=== PATIENT | female | born 1935 | race Caucasian/White ===

== ENCOUNTER 2019-07-02 09:24 | Emergency (ER) | payer MEDICARE, BC ==
--- OUTSIDE RECORDS SUMMARY | 2019-07-02 09:37 | XMS REPORT | Continuity of Care Document ---
:1935 External Reference #:[id number] Author Name Hernietta Carmona Problems Description No Information Available Social History Type Date Description Comments Sex Unknown Allergies, Adverse Reactions, Alerts Description No Information Available Medications Description No Information Available Immunizations Description No Information Available Vital Signs Description No Information Available Results Description No Information Available Procedures Description No Information Available Medical Devices Description No Information Available Encounters Description No Information Available Assessments Description No Information Available Plan of Treatment No Information Available Functional Status Description No Information Available Mental Status Description No Information Available Referrals Description No Information Available
--- OUTSIDE RECORDS SUMMARY | 2019-07-02 09:37 | XMS REPORT | Summary of Care ---
:1935 Author Organization [facility] Address [address] [place] [address] Care Team Providers Name Role Phone Peng Lopez DO Primary Care Provider Reason for Visit Auth/Cert Status Reason Specialty Diagnoses / Procedures Referred By Contact Referred To Contact Diagnoses Acute ischemic stroke Acute ischemic stroke Acute ishemic stroke [163.9] Encounter Details Date Type Department Care Team Description 06/17/2019 - Hospital 09F NEUROSCIENCE [place], [place] Cerebrovascular 06/18/2019 Encounter CRITICAL CARE SHEFALI Conde accident (CVA), [address] unspecified mechanism [place], [place] St (Primary Dx) [id number] [place] [address] [phone] Allergies No Known Allergiesdocumented as of this encounter (statuses as of 06/18/2019) Medications Medication Sig Dispensed Refills Start Date End Date Status Apixaban 5 MG Oral Take 1 tablet 30 tablet 0 06/19/2019 Active Tablet (ELIQUIS) by mouth Two Times Daily Atorvastatin Take 1 tablet 30 tablet 0 06/18/2019 06/16/2020 Active Calcium 40 MG Oral by mouth every Tablet (LIPITOR) evening Atorvastatin Take 1 tablet 30 tablet 0 06/18/2019 06/18/2019 Discontinued Calcium 40 MG Oral by mouth every Tablet (LIPITOR) evening documented as of this encounter (statuses as of 06/18/2019) Active Problems Problem Noted Date Impaired mobility and activities of daily living 06/18/2019 Acute ischemic right MCA stroke 06/17/2019 documented as of this encounter (statuses as of 06/18/2019) Social History Tobacco Use Types Packs/Day Years Used Date Never Smoker 0 Smokeless Tobacco: Never Used Alcohol Use Drinks/Week oz/Week Comments Not Currently Sex Assigned at Date Recorded Not on file Job Start Date Occupation Industry Not on file Not on file Not on file Travel History Travel Start Travel End No recent travel history available. documented as of this encounter Last Filed Vital Signs Vital Sign Reading Time Taken Comments Blood Pressure 148/65 06/18/2019 12:00 PM EST Pulse 91 06/18/2019 12:00 PM EST Temperature 37 06/18/2019 12:00 PM EST C (98.6 F) Respiratory Rate 17 06/18/2019 12:00 PM EST Oxygen Saturation 97% 06/18/2019 12:00 PM EST Inhaled Oxygen Concentration - - Weight 61.5 kg (135 lb 9.3 oz) 06/17/2019 2:00 PM EST Height 168.9 cm (5' 6.5") 06/17/2019 2:00 PM EST Body Mass Index 21.56 06/17/2019 2:00 PM EST documented in this encounter Discharge Instructions Discharge Instr - Charles Watkins PA - 06/18/2019 2:49 PM ESTPatient Instructions: 1) No heavy lifting or strenuous activity 2) Regular diet 3) Continue to take all medications as instructed. 4) Return to ED with any new signs or symptoms including extremity weakness, facial droop, bleeding,or altered mental status. Follow Up: 1) Please follow up with PCP w/in 1 week of discharge 2) Please follow up w/ Stroke Clinic w/in 3 months of discharge 3) Please follow up with boiler technician w/in 1 month of discharge. documented in this encounter Progress Notes Sienna Pearce RN - 06/18/2019 3:27 PM ESTRN reviewed discharge information, follow up information, and medication information with patient and family. All questions answered. Peripheral IV's removed. Sites are clean, dry, intact. Patient has no complaints at time of discharge. Patient discharged to home. Brought out to awaiting family vehicle by this RN. Vee Hemphill CCC-PATIENT ACCESS REPRESENTATIVE - 06/18/2019 2:42 PM ESTSpeech Language Pathology Acute Care Missed Visit Note Location: bedside Attempted to visit patient for therapy, but was unable for the following reasons: MD in room with pt and family, pt is being d/c'd home on regular diet. RN reports that she is doing well on this diet. (Therapist may be reached on [employer]) SESSION: Duration: 0 CHARGES: - ORDER - SPEECH THERAPY CONSULT 1 Units Total treatment minutes: 0.00 Minutes Electronically Signed by: Vee Anguiano, YURY/PATIENT ACCESS REPRESENTATIVE, PATIENT ACCESS REPRESENTATIVE 06/18/2019 2:44:29 PM Electronically signed by Vee Siddiqi, [facility]-PATIENT ACCESS REPRESENTATIVE at 06/18/2019 2:44 PM Mindy Ramesh RN - 06/18/2019 2:00 PM ESTRN to bedside. Pt identified. Prior to bubble study, PIV checked for patency. PIV has good blood return and flushes easily. Agitated saline injection completed as per policy. Pt tolerated well without c/o noted. Pt educated on agitated saline injection prior to completion. No additional questionsat this time Ghazala Simpson MBBS - 06/18/2019 1:23 AM EST NIH Stroke Scale: Follow-up Assessment Category Patient Score 1a. Level of consciousness (Alert, drowsy, etc.) 0 - Alert 1b. LOC Questions (Month, age) 0 - Both questions correct 1c. LOC Commands (Open, close eyes; make fist, let go) 0 - Performs both tasks correctly 2. Best Gaze (Eyes open- patient follows finger or face) 0 - Normal 3. Visual (Introduce visual stimulus to patients visual field quadrants) 0 - No visual loss 4. Facial palsy (Show teeth, raise eyebrows and squeeze eyes shut) 1 - Minor paralysis 5a. Motor Arm left 5b. Motor Arm right (Elevate extremity to 90 and score drift/movement) Left: 0- No drift ( extends arm 10sec. w/o drift) Right: 0- No drift (extends arm 10sec. w/o drift) 6a. Motor Leg left 6b. Motor Leg right (Elevate extremity to 30 and score drift/movement) Left: 0- No drift ( extends leg 5 sec w/o drift) Right: 0- No drift (extends leg 5 sec w/o drift) 7. Limb Ataxia (Finger-nose, heel-san) 0 - Absent 8. Sensory (Pin prick to face, arm trunk, and leg- compare side to side) 0 - Normal 9. Best Language (Name items, describes a picture, reads sentence) 0 - No aphasia 10. Dysarthria (Evaluate speech clarity by patient repeating listed words) 0 - Normal articulation 11. Extinction and Inattention (Use information from prior testing to identify neglect or double simultaneous stimuli testing) 0 -No neglect Total Score: 1 Jeanna Burger RN - 06/17/2019 7:30 PM [id number]: Patient picked up from IR to be transported to 9. Continuous cardiac monitoring maintained. Dr. Christina at bedside for collaborative assessment. Left groin site hematoma noted. Head to toe assessment completed. Post-op bedrest and HOB orders followed. 1500: NaCl 0.9% maintenance fluid started at 100 mL/hr 1730: Dr. Cid at bedside to assess patient. Left groin site hematoma assessed. 1800: Bedside swallow evaluation completed. Patient passed. Regular diet ordered by Dr. Cid 1900: Bedside report given to oncoming RN. Collaborative assessment completed. Jeanna Burger RN - 06/17/2019 6:49 PM ESTIf wound was present on admission , this documentation was sent to attending provider for cosignature. Jeanna Leung RN Alicia Levy MD - 06/17/2019 5:44 PM EST NIH Stroke Scale: Category Patient Score 1a. Level of consciousness (Alert, drowsy, etc.) 0 - Alert 1b. LOC Questions (Month, age) 0 - Both questions correct 1c. LOC Commands (Open, close eyes; make fist, let go) 0 - Performs both tasks correctly 2. Best Gaze (Eyes open- patient follows finger or face) 0 - Normal 3. Visual (Introduce visual stimulus to patients visual field quadrants) 0 - No visual loss 4. Facial palsy (Show teeth, raise eyebrows and squeeze eyes shut) 2 - Partial paralysis 5a. Motor Arm left 5b. Motor Arm right (Elevate extremity to 90 and score drift/movement) Left: 0- No drift ( extends arm 10sec. w/o drift) Right: 0- No drift (extends arm 10sec. w/o drift) 6a. Motor Leg left 6b. Motor Leg right (Elevate extremity to 30 and score drift/movement) Left: 3- No effort against gravity Right: 0- No drift (extends leg 5 sec w/o drift) 7. Limb Ataxia (Finger-nose, heel-san) 0 - Absent 8. Sensory (Pin prick to face, arm trunk, and leg- compare side to side) 0 - Normal 9. Best Language (Name items, describes a picture, reads sentence) 0 - No aphasia 10. Dysarthria (Evaluate speech clarity by patient repeating listed words) 0 - Normal articulation 11. Extinction and Inattention (Use information from prior testing to identify neglect or double simultaneous stimuli testing) 0 -No neglect Total Score: 5 Signature: ALICIA AMARO MD Date and Time: June 17, 2019 5:47 PM Shun Singh MD - 06/17/2019 12:12 PM EST NIH Stroke Scale: Initial Assessment Category Patient Score 1a. Level of consciousness (Alert, drowsy, etc.) 0 - Alert 1b. LOC Questions (Month, age) 0 - Both questions correct 1c. LOC Commands (Open, close eyes; make fist, let go) 0 - Performs both tasks correctly 2. Best Gaze (Eyes open- patient follows finger or face) 2 - Forced deviation or total gaze paresis 3. Visual (Introduce visual stimulus to patients visual field quadrants) 2 - Complete hemianopia 4. Facial palsy (Show teeth, raise eyebrows and squeeze eyes shut) 2 - Partial paralysis 5a. Motor Arm left 5b. Motor Arm right (Elevate extremity to 90 and score drift/movement) Left: 3- No effort against gravity Right: 0- No drift (extends arm 10sec. w/o drift) 6a. Motor Leg left 6b. Motor Leg right (Elevate extremity to 30 and score drift/movement) Left: 3- No effort against gravity Right: 0- No drift (extends leg 5 sec w/o drift) 7. Limb Ataxia (Finger-nose, heel-san) 0 - Absent 8. Sensory (Pin prick to face, arm trunk, and leg- compare side to side) 2 - Severe to total sensory loss 9. Best Language (Name items, describes a picture, reads sentence) 0 - No aphasia 10. Dysarthria (Evaluate speech clarity by patient repeating listed words) 1 - Mild to moderate dysarthria 11. Extinction and Inattention (Use information from prior testing to identify neglect or double simultaneous stimuli testing) 2 -Complete neglect Total Score: 17 LKW 11:10 AM BG 80 173/78 A candidate for tPA tPA given at 1225 IR code activated at 1230 In IR suite now Transfer to F after the MERElectronically signed by Shun Acevedo MD at 2018 1:16 PM ESTdocumented in this encounter Plan of Treatment Name Type Priority Associated Diagnoses Date/Time IR Arteriogram Imaging CODE 06/17/2019 1:24 Cerebral PM EST Echo complete with Cardiac Services Routine 06/17/2019 1:03 bubble study PM EST Name Type Priority Associated Diagnoses Order Schedule IR Arteriogram Cerebral Imaging CODE One Time Imaging CODE/PETROLEUM PRODUCTION ENGINEER for 1 Occurrences starting 06/17/2019 until 06/17/2019 CBC and Differential Lab Routine AM Draw for 3 Occurrences starting 06/18/2019 until 06/20/2019, 1 completed Basic Metabolic Panel Lab Routine AM Draw for 3 Occurrences starting 06/18/2019 until 06/20/2019, 1 completed EKG 12 Lead ECG Routine Once for 1 Occurrences starting 06/18/2019 until 06/18/2019 documented as of this encounter Implants Implanted Type Area Systems Support Officer Device Shelf Model / Identifier Expiration Date Serial / Lot Vas Jayashree - Mynx Embedded Case Manager 6-7 Fr. 10/Bx - [id number] Left: NO MANUFACTURE [id number] / Implanted: Qty: 1 on 06/17/2019 by Pamela Christina MD at [facility] INPATIENT Groin / [id number] documented as of this encounter Procedures Procedure Name Priority Date/Time Associated Comments Diagnosis CT HEAD WITHOUT Routine 06/18/2019 12:25 Results for this CONTRAST 53751 PM EST procedure are in the results section. CBC AND DIFFERENTIAL Routine 06/18/2019 5:41 Results for this AM EST procedure are in the results section. TSH Routine 06/18/2019 5:41 Results for this AM EST procedure are in the results section. T4, FREE Routine 06/18/2019 5:41 Results for this AM EST procedure are in the results section. BASIC METABOLIC PANEL Routine 06/18/2019 5:41 Results for this AM EST procedure are in the results section. MR BRAIN WITHOUT STAT 06/18/2019 12:14 Results for this CONTRAST 92596 AM EST procedure are in the results section. PARTIAL THROMBOPLASTIN Routine 06/17/2019 5:14 Results for this TIME (PTT) PM EST procedure are in the results section. URINALYSIS WITH STAT 06/17/2019 5:14 Results for this MICROSCOPIC PM EST procedure are in the results section. ECHOCARDIOGRAM COMPLETE Routine 06/17/2019 1:03 WITH BUBBLE STUDY PM EST EKG ED PHYSICIAN Routine 06/17/2019 12:52 Results for this INTERPRETATION PM EST procedure are in the results section. CT ANGIOGRAPHY NECK CODE 06/17/2019 12:36 Results for this 50272 PM EST procedure are in the results section. CT ANGIOGRAPHY HEAD CODE 06/17/2019 12:36 Results for this 89508 PM EST procedure are in the results section. PROTIME INR CODE 06/17/2019 12:32 Results for this PM EST procedure are in the results section. CBC AND DIFFERENTIAL CODE 06/17/2019 12:32 Results for this PM EST procedure are in the results section. TSH Routine 06/17/2019 12:32 Results for this PM EST procedure are in the results section. BILIRUBIN, DIRECT Routine 06/17/2019 12:32 Results for this PM EST procedure are in the results section. LIPID PANEL Routine 06/17/2019 12:32 Results for this PM EST procedure are in the results section. COMPREHENSIVE METABOLIC Routine 06/17/2019 12:32 Results for this PANEL PM EST procedure are in the results section. BASIC METABOLIC PANEL CODE 06/17/2019 12:32 Results for this PM EST procedure are in the results section. HEMOGLOBIN A1C Routine 06/17/2019 12:31 Results for this PM EST procedure are in the results section. EKG 12-LEAD - CMAXX 06/17/2019 12:28 REPORT PM EST EKG 12-LEAD - CMAXX 06/17/2019 12:28 REPORT PM EST EKG 12-LEAD STAT 06/17/2019 12:28 Results for this PM EST procedure are in the results section. EKG 12-LEAD - CMAXX 06/17/2019 12:28 REPORT PM EST POCT ISTAT TROPONIN Routine 06/17/2019 12:24 Results for this PM EST procedure are in the results section. documented in this encounter Results CT Head without Contrast (06/18/2019 12:25 PM EST) Specimen Impressions Performed At IMPRESSION: [facility] 1. No acute intracranial hemorrhage or acute territorial infarction. 2. Left temporal encephalomalacia and chronic microvascular ischemic changes as above. Narrative Performed At [facility] INDICATION: Status post TPA. TECHNIQUE: Multidetector axial CT images were obtained from the skull base to the vertex without administration of intravenous contrast. Automated dose lowering techniques and/or adjustment according to patient size were utilized for this exam. COMPARISON: CTA head and neck dated 06/17/2019. FINDINGS: No acute intracranial hemorrhage or acute territorial infarction is evident. Encephalomalacia of the anterior left temporal lobe is again noted. A few scattered hypodensities in the periventricular and subcortical white matter are nonspecific, but likely sequela of chronic microvascular ischemic disease. Mild generalized cerebral volume loss with commensurate enlargement of the ventricles, sulci, basal cisterns is noted. The basal cisterns are patent. No extra-axial fluid collections are identified. The calvarium is diffusely demineralized, but otherwise intact. The imaged paranasal sinuses and mastoid air cells are clear. Procedure Note Interface, Received Via yoonew System - 06/18/2019 2:06 PM EST INDICATION: Status post TPA. TECHNIQUE: Multidetector axial CT images were obtained from the skull base to the vertex without administration of intravenous contrast. Automated dose lowering techniques and/or adjustment according to patient size were utilized for this exam. COMPARISON: CTA head and neck dated 06/17/2019. FINDINGS: No acute intracranial hemorrhage or acute territorial infarction is evident. Encephalomalacia of the anterior left temporal lobe is again noted. A few scattered hypodensities in the periventricular and subcortical white matter are nonspecific, but likely sequela of chronic microvascular ischemic disease. Mild generalized cerebral volume loss with commensurate enlargement of the ventricles, sulci, basal cisterns is noted. The basal cisterns are patent. No extra-axial fluid collections are identified. The calvarium is diffusely demineralized, but otherwise intact. The imaged paranasal sinuses and mastoid air cells are clear. IMPRESSION: 1. No acute intracranial hemorrhage or acute territorial infarction. 2. Left temporal encephalomalacia and chronic microvascular ischemic changes as above. Performing Organization Address City/State/Zipcode Phone Number [facility] [address] [place] [address] Basic Metabolic Panel (06/18/2019 5:41 AM EST) Bicarbonate 22 22 - 29 [facility] mmol/L [facility] Chloride 108 (H) 98 - 107 [facility] mmol/L [facility] Creatinine 0.54 0.50 - 0.90 [facility] mg/dL [facility] Glucose 96 70 - 140 [facility] mg/dL [facility] Potassium 3.9 3.4 - 5.1 [facility] mmol/L [facility] Sodium 138 136 - 145 [facility] mmol/L [facility] Blood Urea Nitrogen 15 8 - 23 mg/dL [facility] Pathology Anion Gap 8 8 - 15 mmol/L [facility] Pathology Osmolality, Brett 287 275 - 300 [facility] mosm/kg [facility] BUN/Cre Ratio 28 [facility] Pathology Calcium 8.2 (L) 8.8 - 10.2 [facility] mg/dL [facility] GFR Non eGFR is not >60 [facility] Italian 2009 calculated in mL/min/1.73m2 [facility] CDK-EPI patients <18 or Pathology >80 years of age. GFR eGFR is not >60 [facility] Italian 2008 calculated in mL/min/1.73m2 [facility] CKD-EPI patients <18 or Pathology >80 years of age. Specimen Plasma Performing Organization Address City/[facility]/Zipcode Phone Number [facility] CLINICAL PATHOLOGY [address] [place] [address] [facility] [address] [place] [address] Pathology CBC and Differential (06/18/2019 5:41 AM EST) White Blood Cell 7.2 4 - 10 [facility] 10*3/uL [facility] Red Blood Cell 3.45 (L) 4.1 - 5.3 [facility] 10*6/uL [facility] Hemoglobin 10.0 (L) 11.5 - 15.5 [facility] g/dL [facility] Hematocrit 30.6 (L) 36 - 45 % [facility] Mean Cell Volume 88.9 80 - 96 fL [facility] Pathology Mean Cell Hemoglobin 29.0 27 - 33 pg [facility] Pathology Mean Cell Hgb Conc 32.7 32.0 - 36.0 [facility] g/dL [facility] Red Cell Dist Width 14.3 11.5 - 14.5 % [facility] Pathology Platelet Count 171 150 - 400 [facility] 10*3/uL [facility] Differential Type Automated Diff [facility] Neutrophil 61 % [facility] Lymphocyte 26 % [facility] Monocyte 11 % [facility] Eosinophil 1 % [facility] Basophil 1 % [facility] Pathology Abs Neutrophil 4.35 1.8 - 7.0 [facility] 10*3/uL [facility] Abs Lymphocyte 1.89 1.2 - 4.0 [facility] 10*3/uL [facility] Abs Monocyte 0.78 0 - 0.8 [facility] 10*3/uL [facility] Abs Eosinophil 0.09 0 - 0.5 [facility] 10*3/uL [facility] Abs Basophil 0.04 0 - 0.2 [facility] 10*3/uL [facility] Nucleated Red Blood 0 0 - 0 [facility] Cells /100{WBCs} [facility] Pathology Specimen EDTA Whole Blood Performing Organization Address [facility] Phone Number [facility] CLINICAL PATHOLOGY [address] [place] [address] [facility] [address] [place] [address] Pathology TSH (06/18/2019 5:41 AM EST) TSH 1.870 0.270 - 4.200 u[IU]/mL [facility] Pathology Specimen Plasma Performing Organization Address [facility] Phone Number [facility] CLINICAL PATHOLOGY [address] [place] [address] [facility] [address] [place] [address] Pathology T4, free (06/18/2019 5:41 AM EST) Free Thyroxine 0.95 0.93 - 1.70 ng/dL [facility] Pathology Specimen Plasma Performing Organization Address City/State/Zipcode Phone Number [facility] CLINICAL PATHOLOGY [address] [place] [address] [facility] [address] [place] [address] Pathology MR Brain without Contrast (06/18/2019 12:14 AM EST) Specimen Impressions Performed At IMPRESSION: [facility] 1. Area of restricted diffusion in the right centrum semiovale and putamen consistent with acute infarction. 2. A punctate focus of restricted diffusion in the left cerebellum likely represents tiny embolic infarction. 3. No intracranial hemorrhage. Findings discussed with Dr. Rich by Dr. Figueroa via phone on 06/18/2019 at 12:55 AM. Narrative Performed At [facility] Addendum by attending: The aforementioned acute infarction involves also the body of the right caudate nucleus. Encephalomalacia is present in the anterior aspect of the superior and middle left temporal gyri. INDICATION: 84-year-old female post fall with with right MCA occlusion post mechanical thrombectomy. TECHNIQUE: Multiplanar multisequence magnetic resonance imaging of the brain was obtained. COMPARISONS: CTA head and neck dated 06/17/2019 11 hours prior. FINDINGS: Area of restricted diffusion is present in the right centrum semiovale and putamen. There is a punctate focus of restricted diffusion in the left cerebellum. No areas of abnormal susceptibilit y. Nonspecific prevertebral and subcortical T2 and FLAIR hyperintensities that likely represent small vessel ischemia. Extra-axial spaces and ventricular system are normal in size and morphology for the patient's age. Basal cisterns are patent. There is no midline shift or mass effect. Normal vascular flow voids are present. Paranasal sinuses are well aerated. Visualized orbits are unremarkable. Procedure Note Interface, Received Via [employer] System - 06/18/2019 9:14 AM EST Addendum by attending: The aforementioned acute infarction involves also the body of the right caudate nucleus. Encephalomalacia is present in the anterior aspect of the superior and middle left temporal gyri. INDICATION: 84-year-old female post fall with with right MCA occlusion post mechanical thrombectomy. TECHNIQUE: Multiplanar multisequence magnetic resonance imaging of the brain was obtained. COMPARISONS: CTA head and neck dated 06/17/2019 11 hours prior. FINDINGS: Area of restricted diffusion is present in the right centrum semiovale and putamen. There is a punctate focus of restricted diffusion in the left cerebellum. No areas of abnormal susceptibility. Nonspecific prevertebral and subcortical T2 and FLAIR hyperintensities that likely represent small vessel ischemia. Extra-axial spaces and ventricular system are normal in size and morphology for the patient's age. Basal cisterns are patent. There is no midline shift or mass effect. Normal vascular flow voids are present. Paranasal sinuses are well aerated. Visualized orbits are unremarkable. IMPRESSION: 1. Area of restricted diffusion in the right centrum semiovale and putamen consistent with acute infarction. 2. A punctate focus of restricted diffusion in the left cerebellum likely represents tiny embolic infarction. 3. No intracranial hemorrhage. Findings discussed with Dr. Rich by Dr. Figueroa via phone on 2018 at 12:55 AM. Performing Organization Address City/[facility]/Zipcode Phone Number [facility] [address] [place] [address] Partial Thromboplastin Time (PTT) (06/17/2019 5:14 PM EST) PTT Patient (PAT) 26.9 24.0 - 34.0 s [facility] Pathology Specimen Plasma Performing Organization Address City/[facility]/Zipcode Phone Number [facility] CLINICAL PATHOLOGY [address] [place] [address] [facility] [address] [place] [address] Pathology Urinalysis with microscopic (06/17/2019 5:14 PM EST) Color Yellow [facility] Pathology Clarity Clear [facility] Pathology Specific [place] >1.035 (H) 1.003 - 1.030 [facility] Pathology PH Urine 6.0 5.0 - 8.0 [facility] Pathology Total Protein UA Negative Negative mg/dL [facility] Pathology Glucose UA Negative Negative mg/dL [facility] Pathology Ketone Urine >80 (A) Negative mg/dL [facility] Pathology Bilirubin Negative Negative [facility] Pathology Hemoglobin, Urine 1+ (A) Negative [facility] Pathology Leukocyte Esterase Negative Negative David/uL [facility] Pathology Nitrite Negative Negative [facility] Pathology WBC <1 0 - 5 /HPF [facility] Pathology RBC 2 0 - 3 /HPF [facility] Pathology Sendy Juarez, UA 1 (A) None /HPF [facility] Pathology Specimen Urine Performing Organization Address [place] Phone Number [facility] CLINICAL PATHOLOGY [address] [place] [address] [phone] [facility] [address] [place] [address] Pathology 1ED EKG Interpretation (06/17/2019 12:52 PM EST) Narrative Performed At Jarett Hollis MD EXTERNAL NON-INTERFACED LAB 06/17/2019 12:54 PM 1ED EKG Interpretation Date/Time: 06/17/2019 12:52 PM Performed by: Jarett Hollis MD Authorized by: Jarett Hollis MD ECG reviewed by ED Physician in the absence of a boiler technician: yes Previous ECG: Previous ECG: Unavailable Interpretation: Interpretation: abnormal Rate: ECG rate: 89 ECG rate assessment: normal Rhythm: Rhythm: atrial fibrillation Ectopy: Ectopy: none QRS: QRS axis: Normal QRS intervals: Normal Conduction: Conduction: normal ST segments: ST segments: Normal T waves: T waves: flattening Flattening: III and aVL Q waves: Q waves: III Performing Organization Address [facility] Phone Number EXTERNAL NON-INTERFACED LAB CT Angiography Neck ; Emergent exam: waive labs (06/17/2019 12:36 PM EST) Specimen Impressions Performed At IMPRESSION: [facility] 1. 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 2. The remaining major arteries of the [place] are patent. 3. No acute intracranial hemorrhage. Assessment of stenosis of the internal carotid arteries is based on NASCET criteria. Findings were discussed with Dr. Acevedo by Dr. Padgett via phone at 1220 pm on 06/17/2019. Narrative Performed At INDICATION: Stroke code. Left-sided weakness. [facility] TECHNIQUE: Contiguous axial CT images of the head were acquired from the base of the skull to the vertex without intravenous contrast administration. CT angiography of the head and neck was performed following intravenous administration of 75 mL of Omnipaque 350. Multiple MIP images in axial, coronal, and sagittal planes and 3D surfaced rendered images were then acquired using the source data. Automated dose lowering techniques and/or adjustment according to patient size were utilized for this examination. COMPARISON: None. FINDINGS: Non-enhanced CT head: There is no acute intracranial hemorrhage or evidence of acute territorial infarction. There is encephalomalacia in the left temporal lobe. The ventricles and cerebral sulci are normal. The basal cisterns are patent. No shift of the midline structures, space-occupying mass, or extra-axial abnormalities are shown. Imaged portions of the paranasal sinuses and mastoid air cells are clear. There are no acute fractures of the calvaria or scalp swelling. CTA Neck: GREAT VESSELS: Imaged segments are patent. The left vertebral artery originates directly from the aortic arch. RIGHT INTERNAL CAROTID ARTERY: There is scattered soft and calcific atherosclerosis of the right internal carotid artery without hemodynamically significant stenosis. No dissection. LEFT INTERNAL CAROTID ARTERY: There is scattered soft and calcific atherosclerosis of the left internal carotid artery without hemodynamically significant stenosis. No dissection. VERTEBRAL ARTERIES: The left vertebral artery originates strictly from the aortic arch. There is scattered soft and calcific atherosclerosis of the bilateral vertebral arteries without hemodynamically significant stenosis. No dissection. The right vertebral artery is dominant. OTHER: Imaged portions of the lung apices are clear. No neck mass or suspicious lymph nodes. Multilevel degenerative changes are present in the cervical spine. 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 There is opacification of the distal small branches of the right middle cerebral artery territory, likely from collateral flow. The remaining major cerebral arteries of the [place] of [place] are patent. The left vertebral artery terminates as PICA. Procedure Note Interface, Received Via [employer] - 06/17/2019 1:22 PM EST INDICATION: Stroke code. Left-sided weakness. TECHNIQUE: Contiguous axial CT images of the head were acquired from the base of the skull to the vertex without intravenous contrast administration. CT angiography of the head and neck was performed following intravenous administration of 75 mL of Omnipaque 350. Multiple MIP images in axial, coronal, and sagittal planes and 3D surfaced rendered images were then acquired using the source data. Automated dose lowering techniques and/or adjustment according to patient size were utilized for this examination. COMPARISON: None. FINDINGS: Non-enhanced CT head: There is no acute intracranial hemorrhage or evidence of acute territorial infarction. There is encephalomalacia in the left temporal lobe. The ventricles and cerebral sulci are normal. The basal cisterns are patent. No shift of the midline structures, space-occupying mass, or extra-axial abnormalities are shown. Imaged portions of the paranasal sinuses and mastoid air cells are clear. There are no acute fractures of the calvaria or scalp swelling. CTA Neck: GRE[place]: Imaged segments are patent. The left vertebral artery originates directly from the aortic arch. RIGHT INTERNAL CAROTID ARTERY: There is scattered soft and calcific atherosclerosis of the right internal carotid artery without hemodynamically significant stenosis. No dissection. LEFT INTERNAL CAROTID ARTERY: There is scattered soft and calcific atherosclerosis of the left internal carotid artery without hemodynamically significant stenosis. No dissection. VERTEBRAL ARTERIES: The left vertebral artery originates strictly from the aortic arch. There is scattered soft and calcific atherosclerosis of the bilateral vertebral arteries without hemodynamically significant stenosis. No dissection. The right vertebral artery is dominant. OTHER: Imaged portions of the lung apices are clear. No neck mass or suspicious lymph nodes. Multilevel degenerative changes are present in the cervical spine. 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 There is opacification of the distal small branches of the right middle cerebral artery territory, likely from collateral flow. The remaining major cerebral arteries of the [place] of [place] are patent. The left vertebral artery terminates as PICA. IMPRESSION: 1. 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 2. The remaining major arteries of the [place] of [place] are patent. 3. No acute intracranial hemorrhage. Assessment of stenosis of the internal carotid arteries is based on NASCET criteria. Findings were discussed with Dr. Acevedo by Dr. Padgett via phone at 1220 pm on . Performing Organization Address City/State/Zipcode Phone Number [facility] [address] [place] [address] CT Angiography Head ; Emergent exam: [email or web address] labs (06/17/2019 12:36 PM EST) Specimen Impressions Performed At IMPRESSION: [facility] 1. 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 2. The remaining major arteries of the [place] are patent. 3. No acute intracranial hemorrhage. Assessment of stenosis of the internal carotid arteries is based on NASCET criteria. Findings were discussed with Dr. Acevedo by Dr. Padgett via phone at 1220 pm on 06/17/2019. Narrative Performed At INDICATION: Stroke code. Left-sided weakness. [facility] TECHNIQUE: Contiguous axial CT images of the head were acquired from the base of the skull to the vertex without intravenous contrast administration. CT angiography of the head and neck was performed following intravenous administration of 75 mL of Omnipaque 350. Multiple MIP images in axial, coronal, and sagittal planes and 3D surfaced rendered images were then acquired using the source data. Automated dose lowering techniques and/or adjustment according to patient size were utilized for this examination. COMPARISON: None. FINDINGS: Non-enhanced CT head: There is no acute intracranial hemorrhage or evidence of acute territorial infarction. There is encephalomalacia in the left temporal lobe. The ventricles and cerebral sulci are normal. The basal cisterns are patent. No shift of the midline structures, space-occupying mass, or extra-axial abnormalities are shown. Imaged portions of the paranasal sinuses and mastoid air cells are clear. There are no acute fractures of the calvaria or scalp swelling. CTA Neck: GRE[place] V[place]SELS: Imaged segments are patent. The left vertebral artery originates directly from the aortic arch. RIGHT INTERNAL CAROTID ARTERY: There is scattered soft and calcific atherosclerosis of the right internal carotid artery without hemodynamically significant stenosis. No dissection. LEFT INTERNAL CAROTID ARTERY: There is scattered soft and calcific atherosclerosis of the left internal carotid artery without hemodynamically significant stenosis. No dissection. VERTEBRAL ARTERIES: The left vertebral artery originates strictly from the aortic arch. There is scattered soft and calcific atherosclerosis of the bilateral vertebral arteries without hemodynamically significant stenosis. No dissection. The right vertebral artery is dominant. OTHER: Imaged portions of the lung apices are clear. No neck mass or suspicious lymph nodes. Multilevel degenerative changes are present in the cervical spine. 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 There is opacification of the distal small branches of the right middle cerebral artery territory, likely from collateral flow. The remaining major cerebral arteries of the [place] of [place] are patent. The left vertebral artery terminates as PICA. Procedure Note Interface, Received Via [employer] - 06/17/2019 1:22 PM EST INDICATION: Stroke code. Left-sided weakness. TECHNIQUE: Contiguous axial CT images of the head were acquired from the base of the skull to the vertex without intravenous contrast administration. CT angiography of the head and neck was performed following intravenous administration of 75 mL of Omnipaque 350. Multiple MIP images in axial, coronal, and sagittal planes and 3D surfaced rendered images were then acquired using the source data. Automated dose lowering techniques and/or adjustment according to patient size were utilized for this examination. COMPARISON: None. FINDINGS: Non-enhanced CT head: There is no acute intracranial hemorrhage or evidence of acute territorial infarction. There is encephalomalacia in the left temporal lobe. The ventricles and cerebral sulci are normal. The basal cisterns are patent. No shift of the midline structures, space-occupying mass, or extra-axial abnormalities are shown. Imaged portions of the paranasal sinuses and mastoid air cells are clear. There are no acute fractures of the calvaria or scalp swelling. CTA Neck: [place]: Imaged segments are patent. The left vertebral artery originates directly from the aortic arch. RIGHT INTERNAL CAROTID ARTERY: There is scattered soft and calcific atherosclerosis of the right internal carotid artery without hemodynamically significant stenosis. No dissection. LEFT INTERNAL CAROTID ARTERY: There is scattered soft and calcific atherosclerosis of the left internal carotid artery without hemodynamically significant stenosis. No dissection. VERTEBRAL ARTERIES: The left vertebral artery originates strictly from the aortic arch. There is scattered soft and calcific atherosclerosis of the bilateral vertebral arteries without hemodynamically significant stenosis. No dissection. The right vertebral artery is dominant. OTHER: Imaged portions of the lung apices are clear. No neck mass or suspicious lymph nodes. Multilevel degenerative changes are present in the cervical spine. 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 There is opacification of the distal small branches of the right middle cerebral artery territory, likely from collateral flow. The remaining major cerebral arteries of the [place] are patent. The left vertebral artery terminates as PICA. IMPRESSION: 1. 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 2. The remaining major arteries of the [place] of [place] are patent. 3. No acute intracranial hemorrhage. Assessment of stenosis of the internal carotid arteries is based on NASCET criteria. Findings were discussed with Dr. Acevedo by Dr. Padgett via phone at 1220 pm on . Performing Organization Address City/State/Zipcode Phone Number [facility] [address] [place] [address] Comprehensive Metabolic Panel (06/17/2019 12:32 PM EST) Albumin 3.7 3.5 - 5.2 [facility] g/dL [facility] Pathology Bilirubin, Total 0.5 <1.2 mg/dL [facility] Pathology Calcium 8.8 8.8 - 10.2 [facility] mg/dL [facility] Pathology Chloride 104 98 - 107 [facility] mmol/L [facility] Pathology Creatinine 0.63 0.50 - 0.90 [facility] mg/dL Univ Clin Pathology Glucose 93 70 - 140 [facility] mg/dL [facility] Pathology Alkaline 51 35 - 104 U/L [facility] Phosphatase [facility] Pathology Potassium 4.5 3.4 - 5.1 [facility] mmol/L [facility] Pathology Total Protein 5.6 (L) 6.4 - 8.3 [facility] g/dL [facility] Pathology Sodium 137 136 - 145 [facility] mmol/L [facility] Pathology AST/SGO 17 <32 U/L [facility] Pathology Blood Urea Nitrogen 16 8 - 23 mg/dL [facility] Pathology Osmolality, Brett 285 275 - 300 [facility] mosm/kg [facility] Pathology BUN/Cre Ratio 25 [facility] Pathology Bicarbonate 25 22 - 29 [facility] mmol/L [facility] Pathology ALT/SGP 11 <33 U/L [facility] Pathology Anion Gap 8 8 - 15 mmol/L [facility] Pathology A/G Ratio 1.9 [facility] Pathology GFR Non eGFR is not >60 [facility] 2008 calculated in mL/min/1.73m2 [facility] CDK-EPI patients <18 or Pathology >80 years of age. GFR eGFR is not >60 [facility] 2008 calculated in mL/min/1.73m2 [facility] CKD-EPI patients <18 or Pathology >80 years of age. Specimen Plasma Performing Organization Address [place]/[facility]/Zipcode Phone Number [facility] CLINICAL PATHOLOGY [address] [place] [address] [phone] [facility] [address] [place] [address] Pathology TSH (06/17/2019 12:32 PM EST) TSH 4.680 (H) 0.270 - 4.200 [facility] u[IU]/mL Clin Pathology Specimen Plasma Performing Organization Address [place]/[facility]/Zipcode Phone Number [facility] CLINICAL PATHOLOGY [address] [place] [address] [facility] [address] [place] [address] Pathology Lipid panel (06/17/2019 12:32 PM EST) Cholesterol 199 <200 mg/dL [facility] Pathology Triglyceride 55 <150 mg/dL [facility] Pathology HDL Cholesterol 77 >50 mg/dL [facility] Pathology LDL Cholesterol 111 (H) <100 mg/dL [facility] Pathology VLDL Cholesterol 11 (L) 16 - 42 mg/dl [facility] Pathology Non HDL Cholesterol 122 <130 mg/dL [facility] Pathology Specimen Plasma Performing Organization Address [facility] Phone Number [facility] [address] [place] [address] [phone] [facility] [address] [place] [address] Pathology Bilirubin, direct (06/17/2019 12:32 PM EST) Bilirubin, Direct <0.2 <0.3 mg/dL [facility] Pathology Specimen Plasma Performing Organization Address [facility] Phone Number [facility] CLINICAL PATHOLOGY [address] [place] [address] [facility] [address] [place] [address] Pathology Protime-INR (06/17/2019 12:32 PM EST) PT Patient 14.8 12.5 - 14.9 [facility] Pathology Int'l Normalized 1.12Comment: Routine [facility] Ratio intensity oral Univ Clin anticoagulation INR is Pathology typically 2.0-3.0. Target INR must be clinically individualized. Specimen Plasma Performing Organization Address [facility] Phone Number [facility] CLINICAL PATHOLOGY [address] [place] [address] [facility] [address] [place] [address] Pathology CBC and Differential (06/17/2019 12:32 PM EST) White Blood Cell 7.1 4 - 10 [facility] 10*3/uL [facility] Clin Pathology Red Blood Cell 4.40 4.1 - 5.3 [facility] 10*6/uL [facility] Pathology Hemoglobin 12.6 11.5 - 15.5 [facility] g/dL [facility] Pathology Hematocrit 38.8 36 - 45 % [facility] Pathology Mean Cell Volume 88.1 80 - 96 fL [facility] Pathology Mean Cell Hemoglobin 28.7 27 - 33 pg [facility] Pathology Mean Cell Hgb Conc 32.6 32.0 - 36.0 [facility] g/dL Univ Clin Pathology Red Cell Dist Width 14.2 11.5 - 14.5 % [facility] Pathology Platelet Count 204 150 - 400 [facility] 10*3/uL [facility] Clin Pathology Differential Type Automated Diff [facility] Pathology Neutrophil 65 % [facility] Pathology Lymphocyte 24 % [facility] Pathology Monocyte 8 % [facility] Pathology Eosinophil 2 % [facility] Pathology Basophil 1 % [facility] Pathology Abs Neutrophil 4.62 1.8 - 7.0 [facility] 10*3/uL [facility] Pathology Abs Lymphocyte 1.72 1.2 - 4.0 [facility] 10*3/uL [facility] Pathology Abs Monocyte 0.60 0 - 0.8 [facility] 10*3/uL [facility] Pathology Abs Eosinophil 0.12 0 - 0.5 [facility] 10*3/uL [facility] Pathology Abs Basophil 0.09 0 - 0.2 [facility] 10*3/uL [facility] Pathology Nucleated Red Blood 0 0 - 0 [facility] Cells /100{WBCs} [facility] Pathology Specimen EDTA Whole Blood Performing Organization Address [place]/[facility]/Zipconc Phone Number [facility] CLINICAL PATHOLOGY [address] [place] [address] [phone] [facility] [address] [place] [address] Pathology Basic Metabolic Panel (06/17/2019 12:32 PM EST) Bicarbonate 25 22 - 29 [facility] mmol/L [facility] Pathology Chloride 104 98 - 107 [facility] mmol/L [facility] Pathology Creatinine 0.63 0.50 - 0.90 [facility] mg/dL [facility] Pathology Glucose 93 70 - 140 [facility] mg/dL [facility] Pathology Potassium 4.5 3.4 - 5.1 [facility] mmol/L [facility] Pathology Sodium 137 136 - 145 [facility] mmol/L [facility] Pathology Blood Urea Nitrogen 16 8 - 23 mg/dL [facility] Pathology Anion Gap 8 8 - 15 mmol/L [facility] Pathology Osmolality, Brett 285 275 - 300 [facility] mosm/kg [facility] Pathology BUN/Cre Ratio 25 [facility] Pathology Calcium 8.8 8.8 - 10.2 [facility] mg/dL [facility] Pathology GFR Non eGFR is not >60 [facility] 2008 calculated in mL/min/1.73m2 [facility] CDK-EPI patients <18 or Pathology >80 years of age. GFR eGFR is not >60 [facility] 2008 calculated in mL/min/1.73m2 [facility] CKD-EPI patients <18 or Pathology >80 years of age. Specimen Plasma Performing Organization Address [place]/[facility] Phone Number [facility] [address] [place] [address] [facility] [address] [place] [address] Pathology Hemoglobin A1c (06/17/2019 12:31 PM EST) Hemoglobin A1C 5.5 4.0 - 6.0 % [facility] Comment: Univ Clin (NOTE) Pathology <5.7% Average risk of diabetes(ADA) 5.7-6.4% Increased risk of diabetes(ADA) >/= 6.5% Diagnostic for diabetes(ADA) Estimated Avg 111 <126 mg/dL [facility] Glucose [facility] Pathology Specimen Whole Blood Performing Organization Address [place]/[facility] Phone Number [facility] [address] [place] [address] [facility] [address] [place] [address] Pathology EKG 12-LEAD - CMAXX REPORT (06/17/2019 12:28 PM EST) Narrative Performed At EKG 12-LEAD - CMAXX REPORT (06/17/2019 12:28 PM EST) Narrative Performed At EKG 12 Lead (06/17/2019 12:28 PM EST) Specimen Narrative Performed At Ventricular Rate: [facility] EKG 89 BPM Atrial Rate: 81 BPM QRS Duration: 74 ms Q-T Interval: 406 ms QTC Calculation(Bazett): 493 ms R [place]: 4 degrees T [place]: 42 degrees : ATRIAL FIBRILLATION : LOW VOLTAGE QRS : POOR PRECORDIAL LEAD R WAVE PROGRESSION V1-2 MAY BE LEAD : POSITION : NONSPECIFIC T WAVE ABNORMALITY : ABNORMAL ECG : NO PREVIOUS ECGS AVAILABLE : Confirmed by MD CARUSO DANIEL ([id number]) on 06/18/2019 9:09:38 : AM Procedure Note Interface, Received Via [employer] - 06/18/2019 9:09 AM EST Ventricular Rate: 89 BPM Atrial Rate: 81 BPM QRS Duration: 74 ms Q-T Interval: 406 ms QTC Calculation(Bazett): 493 ms R [place]: 4 degrees T [place]: 42 degrees : ATRIAL FIBRILLATION : LOW VOLTAGE QRS : POOR PRECORDIAL LEAD R WAVE PROGRESSION V1-2 MAY BE LEAD : POSITION : NONSPECIFIC T WAVE ABNORMALITY : ABNORMAL ECG : NO PREVIOUS ECGS AVAILABLE : Confirmed by MD CARUSO DANIEL ([id number]) on 06/18/2019 9:09:38 : AM Performing Organization Address City/State/Zipcode Phone Number [facility] EKG EKG 12-LEAD - CMAXX REPORT (06/17/2019 12:28 PM EST) Narrative Performed At POCT i-STAT Troponin (06/17/2019 12:24 PM EST) i-STAT Troponin I 0.00 0.00 - 0.08 ng/mL [facility] POC Specimen Whole Blood Performing Organization Address [facility] Phone Number POINT OF CARE TEST [address] POC 750 [place] [address] documented in this encounter Visit Diagnoses Diagnosis 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 Unspecified cerebral artery occlusion with cerebral infarction Cerebrovascular accident (CVA), unspecified mechanism Impaired mobility and activities of daily living Mechanical problems with limbs documented in this encounter Administered Medications Medication Order MAR Action Action Date Dose Rate Site acetaminophen (TYLENOL) tablet 650 mg 650 mg, Oral, Every 6 hours PRN, Mild Pain (Pain Scale Score 1-3), Starting Tue06/18/19 at 0242, For 30 days, Maximum daily dose of acetaminophen is 3,000 mg from all sources in 24 hours., atorvastatin (LIPITOR) tablet 40 mg Given 06/17/2019 9:37 PM EST 40 mg 40 mg, Oral, Every evening, First dose on Tue06/17/19 at 1800, For 30 days Given 06/17/2019 6:27 PM EST 40 mg bisacodyl (DULCOLAX) suppository 10 mg 10 mg, Rectal, Every 72 hours PRN, Constipation, Starting Tue06/18/19 at 0817 , For 30 days, Hold if patient has had BM within the past 2 days., docusate (COLACE) 50 MG/5ML liquid 100 mg 100 mg, Oral, 2 Times Daily, First dose on Tue06/18/19 at 0900, For 30 days enoxaparin sodium (LOVENOX) injection 40 mg 40 mg, Subcutaneous, Daily Standard, First dose on Tue06/19/19 at 0900, For 30 days hydrALAZINE (APRESOLINE) injection 10 mg 10 mg, Intravenous, Once PRN, Other, For SBP > 160, Starting Tue06/18/19 at 0237, For 713 hours, Dilute in 25-50 ml normal saline. Administer over 30 minutes. Please give first if patient is bradycardic., labetalol (NORMODYNE,TRANDATE) injection 10 mg 10 mg, Intravenous, Once PRN, High Blood Pressure, For SBP > 160, Starting Tue06/18/19 at 0238, For 713 hours, May repeat X1. Please hold if patient is bradycardic, magnesium hydroxide (MILK OF MAGNESIA) 400 MG/5ML suspension 45 mL 45 mL, Oral, Nightly, First dose on Tue06/18/19 at 2200, For 30 days, If serum creatinine > 2 notify provider before administering., senna (SENOKOT) syrup 10 mL 10 mL, Oral, Nightly PRN, Constipation, Starting Tue06/18/19 at 0817, For 30 days senna 8.6 MG 2 tablet 2 tablet, Oral, Nightly PRN, Constipation, Starting Tue06/18/19 at 0817, For 30 days Medication Order MAR Action Action Date Dose Rate Site alteplase (ACTIVASE) 47 mg in New Bag 06/17/2019 12:27 PM EST 47 mg 47 mL/ hr sodium chloride 0.9 % 47 mL infusion 47 mg, Intravenous, Administer over 60 Minutes, Once, [place] 06/17/19 at 1330, For 1 dose, Infuse over 1 hour Activase. VS with neuro assessment will be performed every 15 minutes during the infusion then followed by every 15 minutes X 1 hour, then every 30 minutes X 6 hours and then every hour X 16 hours., alteplase (ACTIVASE) 5 mg in sodium New Bag 06/17/2019 12:25 PM EST 5 mg 300 mL/hr chloride 0.9 % 5 mL bolus 5 mg, Intravenous, Administer over 1 Minutes, Once, [place] 06/17/19 at 1330, For 1 dose, Administered IV Push over 1 minute Activase. 10% of total Dose, fentaNYL (SUBLIMAZE) (PF) injection Given 06/17/2019 1:08 PM EST 50 mcg Code/Trauma Medication, Starting 06/17/19 at 1308 iohexol (OMNIPAQUE) 350 MG/ML contrast Given 06/17/2019 12:30 PM EST 100 mLs injection 100 mL 100 mL, Given by IV, 1 TIME IMAGING, 06/17/19 at 1230, For 1 dose labetalol (NORMODYNE,TRANDATE) injection Given 06/17/2019 1:47 PM EST 10 mg Code/Trauma Medication, Starting 06/17/19 at 1347 lidocaine (XYLOCAINE) 2 % injection Given 06/17/2019 1:14 PM EST 10 mLs Code/Trauma Medication, Starting 06/17/19 at 1314 lidocaine-EPINEPHrine 2 %-1:[id number] injection Given 06/17/2019 1:47 PM EST 4 mLs Code/Trauma Medication, Starting 06/17/19 at 1347 midazolam (VERSED) injection Given 06/17/2019 1:07 PM EST 0.5 mg Code/Trauma Medication, Starting 06/17/19 at 1307 NaCl infusion 0.9 % Rate/Dose Verify 06/18/2019 7:00 AM EST 100 mL/hr at 100 mL/hr, Intravenous, Continuous, Starting 06/17/19 at 1315, For 30 days Rate/Dose Verify 06/18/2019 6:00 AM EST 100 mL/hr Rate/Dose Verify 06/18/2019 5:00 AM EST 100 mL/hr sodium chloride infusion 0.9 % New Bag 06/17/2019 1:15 PM EST 50 mLs 47 mL/hr Intravenous, Once, 06/17/19 at 1330, For 1 dose, After completion of Alteplase flush line with 50 ml NS at the same rate as the Alteplase infusion., documented in this encounter
--- OUTSIDE RECORDS SUMMARY | 2019-07-02 09:37 | XMS REPORT | Continuity of Care Document ---
:1935 External Reference #:[id number] Author Name Henrietta Carmona Problems Description No Information Available Social [...]
--- OUTSIDE RECORDS SUMMARY | 2019-07-02 09:37 | XMS REPORT | Continuity of Care Document ---
:1935 External Reference #:[id number] Author Name Antea Goodman PA Address [address] [place] [id number] Problems Active Problems Provider Date Allergic rhinitis Kraig Pina MD Onset: 2008 Mixed hyperlipidemia Kraig Pina MD Onset: 08/02/2006 Backache Kraig Pina MD Onset: 08/02/2006 Senile osteoporosis Kraig Pina MD Onset: 08/02/2006 Arthropathy of joint of hand Onset: 08/02/2006 Social History Type Date Description Comments Sex Unknown Tobacco Use Start: Unknown Patient has never smoked Smoking Status Reviewed: 06/28/18 Patient has never smoked Allergies, Adverse Reactions, Alerts Description No Known Drug Allergies Medications Active Medications SIG Qnty Indications Ordering Provider Date Metoprolol Succinate take 1 tablet 90tabs I48.91 Peng Lopez, 2015 ER by mouth once DO 25mg Tablets ER 24HR daily Calcium 1200 1 by mouth 90units Peng Lopez, 01/02/2015 every day DO [id number] Chewtabs [place] Oil Peng Lopez, Capsules DO Aspirin Ec 1 po daily I48.[address] Mccullough 3 2 by mouth Unknown 1000mg Capsules every day Eliquis 1 by mouth Unknown 5mg Tablets twice a day Atorvastatin Calcium 1 by mouth Unknown 40mg every day Tablets Immunizations CPT Code Status Date Vaccine Lot # [id number] Given 05/02/2013 Tetanus And Diptheria Toxoid 7 Years And Older Preserv Free [id number] Refused 03/19/2019 Shingrix (Shingles) Zoster Vaccine HZV, Recombinant , Subunit, Adj [id number] Refused 03/19/2019 Afluria Or Fluvirin Flu Vac Intramuscular 53008 Refused 06/23/2018 Fluzone Highdose Age 65 And Over Preservative & Antibiotic Free Vital Signs Date Vital Result Comment 06/22/2019 1:05pm Weight 135.31 lb Heart Rate 80 /min BP Systolic 124 mmHg BP Diastolic 62 mmHg Respiratory Rate 18 /min Height 63.75 inches 5'3.75" BMI (Body Mass Index) 23.4 kg/m2 06/19/2019 3:06pm Weight 136.00 lb Heart Rate 94 /min BP Systolic 134 mmHg BP Diastolic 70 mmHg Respiratory Rate 18 /min Height 63.75 inches 5'3.75" BMI (Body Mass Index) 23.5 kg/m2 Results Description No Information Available Procedures Date Code Description Status 02/15/2018 [id number] Mammogram Completed 01/26/2017 [id number] Mammogram Completed 12/22/2016 [id number] Bone Mineral Density Test Completed 01/07/2016 [id number] Mammogram Completed 01/02/2015 [id number] Mammogram Completed 12/05/2014 [id number] Bone Mineral Density Test Completed 01/11/2012 [id number] Colonoscopy Completed Medical Devices Description No Information Available Encounters Type Date Location Provider Dx Diagnosis Office Visit 03/19/2019 [facility] Peng Lopez DO Z02.4 Encounter for 1:45p examination for driving license I48.91 Unspecified atrial fibrillation Assessments Date Code Description Provider 06/22/2019 L76.32 Postprocedural hematoma of skin and Aneta Goodman PA subcutaneous tissue following other procedure 06/22/2019 R22.42 Localized swelling, mass and lump, LEFT lower Aneta Goodman PA limb 06/22/2019 R22.42 Localized swelling, mass and lump, LEFT lower Schedule, Laboratory limb 06/19/2019 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 06/19/2019 I48.91 Unspecified atrial fibrillation Aneta Goodman PA 06/19/2019 E78.2 Mixed hyperlipidemia Aneta Goodman PA 06/19/2019 M79.602 Pain in LEFT arm Aneta Goodman PA 03/19/2019 Z02.4 Encounter for examination for driving license Peng Lopez DO 03/19/2019 I48.91 Unspecified atrial fibrillation Peng Lopez DO Plan of Treatment Future Appointment(s):06/26/2019 8:00 am - Schedule, Laboratory at [facility]2018 2:00 pm - Peng Lopez DO at [facility]06/22/2019 - Aneta Goodman, PAL76.32 Postprocedural hematoma of skin and subcutaneous tissue following other procedureNew Xrays:Venous Doppler LT Leg Upper, Scheduled: 06/22/19Comments: Advised with eliquis and aspirin, brusing may linger for a few weeksAdvised to hold aspirin for nowKeep leg elevatedHeatFollow up:PrnR22.42 Localized swelling , mass and lump, LEFT lower limbComments:Will check US and labs for further eval Functional Status Description No Information Available Mental Status Description No Information Available Referrals Refer to Reason for Referral Status Appt Date shani luke, beronica History of a fib Recent stroke s/p thrombectomy Created faxed 06/20/19 js confirmed with office that they call and schedule with patient [address] [facility] [address] [place] [address] [phone]
--- OUTSIDE RECORDS SUMMARY | 2019-07-02 09:37 | XMS REPORT | Continuity of Care Document ---
:1935 External Reference #:[id number] Author Name Henrietta Carmona Problems Description No [...]
--- OUTSIDE RECORDS SUMMARY | 2019-07-02 09:37 | XMS REPORT | Continuity of Care Document ---
:1935 External Reference #:[id number] Author Name Aneta Goodman PA Address [address] [place] [id number] Problems Active Problems Provider Date Allergic rhinitis [...] 90units Peng Lopez, 01/02/2015 every day DO [id number] Chewtabs [place] Oil Peng Lopez, Capsules DO Aspirin Ec 1 po daily I48.[address] Mccullough 3 2 by mouth Unknown 1000mg Capsules every day Eliquis 1 by mouth Unknown 5mg Tablets twice a day Atorvastatin Calcium 1 by mouth Unknown 40mg every day Tablets Immunizations CPT Code Status Date Vaccine Lot # [id number] Given 05/02/2013 Tetanus And Diptheria Toxoid 7 Years And Older Preserv Free [id number] Refused 03/19/2019 Shingrix (Shingles) Zoster Vaccine HZV, Recombinant , Subunit, Adj [id number] Refused 03/19/2019 Afluria Or Fluvirin Flu Vac Intramuscular 00271 Refused 06/23/2018 Fluzone Highdose Age 65 And Over Preservative & Antibiotic Free Vital Signs Date Vital Result Comment 06/19/2019 3:06pm Weight 136.00 lb Heart Rate 94 /min BP Systolic 134 mmHg BP Diastolic 70 mmHg Respiratory Rate 18 /min Height 63.75 inches 5'3.75" BMI (Body Mass Index) 23.5 kg/m2 03/19/2019 1:52pm Weight 130.00 lb Heart Rate 70 /min BP Systolic 128 mmHg BP Diastolic 76 mmHg Respiratory Rate 18 /min Height 63.75 inches 5'3.75" (05/2016) BMI (Body Mass Index) 22.5 kg/m2 Results Description No Information Available Procedures Date Code Description Status 02/15/2018 [id number] Mammogram Completed 01/26/2017 [id number] Mammogram Completed 12/22/2016 [id number] Bone Mineral Density Test Completed 01/07/2016 [id number] Mammogram Completed 01/02/2015 58641556 Mammogram Completed 12/05/2014 [id number] Bone Mineral Density Test Completed 01/11/2012 [id number] Colonoscopy Completed Medical Devices Description No Information Available Encounters Type Date Location Provider Dx Diagnosis Office Visit 03/19/2019 [facility] Peng Lopez DO Z02.4 Encounter for 1:45p examination for driving license I48.91 Unspecified atrial fibrillation Assessments Date Code Description Provider 06/19/2019 I63.40 Cerebral infarction due to embolism [...] Appointment(s):06/26/2019 8:00 am - Schedule, [facility]2018 2:00 pm - Peng Lopez DO at [facility]06/19/2019 - Aneta Goodman PAI63.40 Cerebral infarction due to embolism of unspecified cerebral arteryComments:S/p thrombectomyDoing wellFollow up:As gebvqghapG25.91 Unspecified atrial fibrillationComments:Rate controlled with metoprololWas [facility] on [facility] follow up with cardiologyReferral:beronica mcleod md,E78.2 Mixed hyperlipidemiaComments:Continue atorvastatin as rjcyamnfwkD14.602 Pain in LEFT armComments:Suspect musculoskeletal painAdvised to continue to monitorCall with worsening pain, chest pain, SOB Functional Status Description No Information Available Mental Status Description No Information Available Referrals Refer to Reason for Referral Status Appt Date beronica mcleod md History of a fib Recent stroke s/p thrombectomy Created [address] [facility] [address] [place] [address] [phone]
--- OUTSIDE RECORDS SUMMARY | 2019-07-02 09:37 | XMS REPORT | Continuity of Care Document ---
:1935 External Reference #:[id number] Author Name Angie Dyer NP Address [address] [place] [address] Problems Active Problems Provider Date Allergic rhinitis [...] 90units Peng Lopez, 01/02/2015 every day DO [id number]-Prdf Chewtabs [place] Oil Peng Lopez, Capsules DO Aspirin Ec 1 po daily I48.[address] Mccullough 3 2 by mouth Unknown 1000mg Capsules every day Eliquis 1 by mouth Unknown 5mg Tablets twice a day Atorvastatin Calcium 1 by mouth Unknown 40mg every day Tablets Immunizations CPT Code Status Date Vaccine Lot # [id number] Given 05/02/2013 Tetanus And Diptheria Toxoid 7 Years And Older Preserv Free 31094 Refused 03/19/2019 Shingrix (Shingles) Zoster Vaccine HZV, Recombinant , Subunit, Adj [id number] Refused 03/19/2019 Afluria Or Fluvirin Flu Vac Intramuscular 94728 Refused 06/23/2018 Fluzone Highdose Age 65 And Over Preservative & Antibiotic Free Vital Signs Date Vital Result Comment 06/26/2019 10:11am Weight 133.44 lb Heart Rate 72 /min BP Systolic 126 mmHg BP Diastolic 70 mmHg Respiratory Rate 16 /min Height 63.75 inches 5'3.75" BMI (Body Mass Index) 23.1 kg/m2 06/22/2019 1:05pm Weight 135.31 lb Heart Rate 80 /min BP Systolic 124 mmHg BP Diastolic 62 mmHg Respiratory Rate 18 /min Height 63.75 inches 5'3.75" BMI (Body Mass Index) 23.4 kg/m2 Results Test Acquired Date Facility Test Result H/L Range Note Laboratory test finding 06/26/2019 [facility] T[facility] <pending> CBC with Auto Diff-fcmg 06/22/2019 [facility] WBC 8.6 K/uL 4.1-11.0 RBC 4.04 M/uL 4.00-5.40 Hemoglobin 11.8 gm/dL Low 12.0-16.0 Hematocrit 35.5 % Low 36.0-47.0 MCV 87.8 fL 80.0-97.0 MCH 29.3 pg 27.0-32.0 MCHC 33.4 g/dL 32.0-36.0 RDW 14.1 % 11.5-14.5 PLT Count 239 K/ul 140-400 MPV 8.8 FL 7.1-10.7 Neutrophil 66.7 % 35.0-75.0 Lymphocyte 19.5 % 16.0-52.0 Monocyte 10.1 % High 2.0-10.0 Eosinophil 2.6 % 0.0-5.0 Basophil 1.1 % 0.0-4.0 Abs Neutrophils 5.7 K/uL 2.1-8.0 Abs Lymphocytes 1.7 K/uL 0.8-5.5 Abs Monocytes 0.9 K/uL 0.1-1.0 Abs Eosinophils 0.2 K/uL 0.0-0.5 Abs Basophils 0.1 K/uL 0.0-0.3 Comprehensive Met Panel-[facility] 06/22/2019 [facility] Sodium 138 mmol/L 135- 146 1 Potassium 4.0 mmol/L 3.5-5.2 Chloride# 102 mmol/L 97-110 2 Carbon Dioxide 29 mmol/L 24-34 Calcium 9.9 mg/dL 8.5-10.5 3 Glucose 101 mg/dL 70-105 BUN 19 mg/dL 6-26 Creatinine 0.7 mg/dL 0.5-1.4 Total Protein 6.1 g/dL 6.0-8.0 Albumin 4.1 g/dL 3.6-4.9 Globulin 2.0 g/dL 2.0-3.5 A/G Ratio 2.1 Ratio 1.0-2.2 Total Bilirubin 1.3 mg/dL 0.1-1.3 Alkaline Phosphatase 55 U/L 24-140 Alt 13 U/L 3-42 Ast 16 U/L 8-42 Anion Gap 7 mmol/L 5-15 4 Female Egfr 82 >60 5 Male Egfr 90 >60 6 1 Updated reference range on new analyzer 2 Updated reference range on new analyzer 3 Updated reference range 12-06-2018 4 Updated Reference Range 5 Concerning GFR Guidelines for Americans: Normal function or mild renal disease, if clinically at risk: >/= 60 mL/min Moderately decreased: 30-59 Severely decreased: 15-29 Renal failure: <15 There is reduced accuracy above 60ml/min/1.73 m squared, but the numeric value may be clinically useful in the near 60 range 6 Concerning GFR Guidelines: Normal function or mild renal disease, if clinically at risk: >/= 60 mL/min Moderately decreased: 30-59 Severely decreased: 15-29 Renal failure: <15 There is reduced accuracy above 60ml/min/1.73 m squared, but the numeric value may be clinically useful in the near 60 range Glomerular Filtration Rate (GFR) is estimated based on the CKD-EPI equation, which assumes a steady state for creatinine as recommended by the National Kidney Disease Education Program in conjunction with the National Institutes of Health and the National Kidney Foundation. Clinical conditions in which it may be necessary to measure GFR by using clearance methods include extremes of age and body size, severe malnutrition or obesity, diseases of skeletal muscle, paraplegia or quadriplegia, vegetarian diet, rapidly changing kidney function, and calculation of the dose of potentially toxic drugs that are excreted by the kidneys. Procedures Date Code Description Status 02/15/2018 [id number] Mammogram Completed 01/26/2017 [id number] Mammogram Completed 12/22/2016 [id number] Bone Mineral Density Test Completed 01/07/2016 [id number] Mammogram Completed 01/02/2015 [id number] Mammogram Completed 12/05/2014 [id number] Bone Mineral Density Test Completed 01/11/2012 [id number] Colonoscopy Completed Medical Devices Description No Information Available Encounters Type Date Location Provider Dx Diagnosis Office Visit 06/26/2019 [facility] Manisha, R22.42 Localized swelling, 10:30a Angie, STRATEGY INTERN mass and lump, LEFT lower limb R21 Rash and other nonspecific skin eruption Office Visit 03/19/2019 1:45p [facility] Peng Lopez DO Z02.4 Encounter for examination for driving license I48.91 Unspecified atrial fibrillation Assessments Date Code Description Provider 06/26/2019 R22.42 Localized swelling, mass and lump, LEFT Digiovanna Angie, STRATEGY INTERN lower limb 06/26/2019 E78.2 Mixed hyperlipidemia Schedule, Laboratory 06/26/2019 R21 Rash and other nonspecific skin eruption Aisha Dyerricia , STRATEGY INTERN 06/22/2019 L76.32 Postprocedural hematoma of skin and Aneta Goodman PA subcutaneous tissue following other procedure 06/22/2019 R22.42 Localized swelling, mass and lump, LEFT Aneta Goodman PA lower limb 06/22/2019 R22.42 Localized swelling, mass and lump, LEFT Schedule, Laboratory lower limb 06/22/2019 R22.42 Localized swelling, mass and lump[facility] 06/19/2019 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 06/19/2019 I48.91 Unspecified atrial fibrillation Aneta Goodman PA 06/19/2019 E78.2 Mixed hyperlipidemia Aneta Goodman PA 06/19/2019 M79.602 Pain in LEFT arm Aneta Goodman PA 03/19/2019 Z02.4 Encounter for examination for driving Peng Lopez DO license 03/19/2019 I48.91 Unspecified atrial fibrillation Peng Lopez DO Plan of Treatment Future Appointment(s):07/04/2019 2:00 pm - [facility] at [facility]06/26[facility]2019 - Angie Dyer, NPR22.42 Localized swelling, mass and lump, LEFT lower limbNew Orders:Physical Therapy, Ordered: 06/26/19Comments:Continue to monitorExplained that this will slowly resolve over the next few weeks Report redness, warmth or increase in swelling at cath siteFollow up:As scheduled with Dr. Lopez on 07/04R21 Rash and other nonspecific skin eruptionComments: Recommend moisturizing lotionMonitor and report worsening rashContinue all meds for now Functional Status Description No Information Available Mental Status Description No Information Available Referrals Refer to Reason for Referral Status Appt Date beronica mcleod md History of a fib Recent stroke s/p thrombectomy Created faxed 06/20/19 js confirmed with office that they call and schedule with patient [address] [facility] [address] [place] [address] [phone]
--- NOTE | 2019-07-02 10:45 | UC ---
Lower Extremity/Ankle HPI - HPI Summary HPI Summary: Ms. Casiano had a CVA on the 10th of this month. She went to [place] where she was very quickly transferred to [place] and had a clot retrieval process. They went into her left groin and she was discharged the next day. She has had swelling and pain in her left lower extremity for about a week. Mid week last week she went to [place] emergency department with a checked for DVT with ultrasound which was negative. She has continued to have pain and swelling. She initially had a lot of ecchymosis in her thigh but that is resolving - History of Current Complaint Chief Complaint: UCLowerExtremity Stated Complaint: SWOLLEN PAIN IN ANKLE Time Seen by Provider: 07/02/19 09:44 Hx Obtained From: Patient Onset/Duration: Gradual Onset, Lasting Days Severity Initially: Mild Severity Currently: Moderate Pain Intensity: 6 Aggravating Factor(s): Standing, Ambulation Alleviating Factor(s): Rest, Elevation Able to Bear Weight: Yes - Allergies/Home Medications Allergies/Adverse Reactions: Allergies Allergy/AdvReac Type Severity Reaction Status Date / Time No Known Allergies Allergy Verified 07/02/19 09:40 Home Medications: Home Medications Apixaban* [Eliquis*] 2.5 mg PO DAILY 07/02/19 [History Confirmed 07/02/19] Aspirin 81 mg CHEW TAB* [Aspirin Low Dose TAB*] 81 mg PO DAILY 07/02/19 [ History Confirmed 07/02/19] Atorvastatin* [Lipitor*] 80 mg PO DAILY 07/02/19 [History Confirmed 07/02/19] Calcium Carb/Vitamin D3/Vit K1 [Calcium + D] 1 chw PO DAILY 07/02/19 [History Confirmed 07/02/19] Metoprolol Tartrate TAB* [Lopressor TAB*] 50 mg PO DAILY 07/02/19 [History Confirmed 07/02/19] Cheraw-3 Fatty Acids/Fish Oil [Cheraw 3] 1 cap PO DAILY 07/02/19 [History Confirmed 07/02/19] PMH/Surg Hx/FS Hx/Imm Hx Endocrine History: Dyslipidemia Cardiovascular History: Hypertension Neurological History: CVA - Surgical History Surgical History: Yes Surgery Procedure, Year, and Place: pelvic fx repair 2017. thrombolysis 2019 - Social History Alcohol Use: None Substance Use Type: None Smoking Status (MU): Never Smoked Tobacco Review of Systems All Other Systems Reviewed And Are Negative: Yes Constitutional: Positive: Negative Respiratory: Positive: Negative Neurovascular: Positive: Negative Musculoskeletal: Positive: Edema Neurological: Positive: Negative Physical Exam - Summary Physical Exam Summary: She is nontoxic in appearance with stable vital signs Triage Information Reviewed: Yes Appearance: Well-Appearing, Pain Distress Vital Signs: Initial Vital Signs Temp 99.8 F 07/02/19 09:45 Pulse 82 07/02/19 09:45 Resp 18 07/02/19 09:45 BP 165/68 07/02/19 09:45 Pulse Ox 98 07/02/19 09:45 Vital Signs Reviewed: Yes Musculoskeletal: Positive: Edema @ - She has some edema and mild ecchymosis in her left foot. This area is tender Skin: Positive: Other - Resolving ecchymosis throughout the lower extremity Diagnostics - Radiology left foot Radiology Interpretation Completed By: Radiologist Summary of Radiographic Findings: Soft tissue swelling left ankle Radiology Interpretation Completed By: Radiologist Summary of Radiographic Findings: Soft tissue swelling Lower Extremity Course/Dx - Course Course Of Treatment: Her ecchymosis is resolving and she has had a DVT ruled out previously. I think the best I can do is treat her symptomatically and have ordered some compression stockings for her. We have discussed keeping her leg elevated as much as possible and follow-up with her PCP. - Differential Dx/Diagnosis Provider Diagnosis: Peripheral edema Discharge ED - Sign-Out/Discharge Documenting (check all that apply): Patient Departure All imaging exams completed and their final reports reviewed: Yes - Discharge Plan Condition: Stable Disposition: HOME Prescriptions: Compress.stocking,Knee,Reg,Med [Jobst Ultrasheer] 1 each DAILY #1 each Patient Education Materials: Leg Edema (ED) Referrals: Peng Lopez DO [Primary Care Provider] - - Billing Disposition and Condition Condition: STABLE Disposition: Home
== END 2019-07-02 11:38 | disposition home or self-care (01) ==
LOC: UCEAST 09:24
DX: R60.0 Localized edema (principal); I10 Essential (primary) hypertension; E78.5 Hyperlipidemia, unspecified; Z86.73 Personal history of transient ischemic attack (TIA), and cerebral infarction without residual deficits; Z79.899 Other long term (current) drug therapy; Z79.82 Long term (current) use of aspirin
CPT/HCPCS: 99212; G0463